=== PATIENT | female | born 1985 | race Caucasian/White ===

== ENCOUNTER → 2019-07-28 | Outpatient (CLI) | payer SELFPAY ==
[~2019-07-28] MED LIST: ANTIVERT 25MG25 MG PO; BCP; CIPRO 500MG TA500 MG PO; DEPO-PROVE400 MG/VIA IM; DESYREL 50MG50 MG PO; HYDROCODONE/APAP PO; LEVOXYL0.025 MG PO; MACROBID 1100 MG/CAP PO; MOTRIN 800800 MG/TAB PO; NORCO 325 MG-7.1 TAB PO; PERCOCET 325 MG1 TA2 PO; PHENERGAN 25 TA25 MG PO; PRILOSEC 20MG20 MG PO; PRISTIQ 50 MG T50 MG PO; SYNTHROID0.075 MG/T PO; TAMIFLU 75MG75 MG PO; TUMS500 MG
[2019-07-28 09:22] LABS: CHOLESTEROL RISK RATIO 4.6
== END ==
LOC: COL.LAB 08:51
PROVIDERS: Registered Nurse
DX: Z13.228 Encounter for screening for other metabolic disorders (principal); E03.9 Hypothyroidism, unspecified

== ENCOUNTER → 2020-11-05 | Outpatient (CLI) | payer SELFPAY | LOC: ZCOL.LAB 10:00 | DX: Z20.822 Contact with and (suspected) exposure to COVID-19 (principal) ==

== ENCOUNTER 2022-05-31 13:15 | Emergency (ER) | payer SELFPAY ==
[~2022-05-31] VITALS: Ht 165.1 cm; Wt 90.9 kg
[2022-05-31 14:00] VITALS: TEMP 100.1
[2022-05-31 14:53] LABS: COLLECTION METHOD CLEAN CATCH
[2022-05-31 14:58] LABS: BASO % 0.8 % (0.0-2.0); GRAN # 2.9 K/mm3 (1.4-6.5); GRAN % 76.9 % (42.2-75.2); HEMOGLOBIN 13.9 g/dl (12.5-16.0); LYMPH # 0.6 K/mm3 (1.2-3.4); LYMPH % 16.3 % (20.0-51.0); MEAN CELL VOLUME 90 fl (80.0-100.0); MEAN CORPUSCULAR HEMOGLOBIN 31 pg (27-31); MEAN CORPUSCULAR HGB CONC 35 g/dl (33.0-37.0); MEAN PLATELET VOLUME 9.4 fl (7.4-10.4); MONO # 0.2 K/mm3 (0.1-0.6); MONO % 5.5 % (1.7-9.3); PLATELET COUNT 227 K/mm3 (130-400); RED BLOOD COUNT 4.45 M/mm3 (4.10-5.30); REDCELL DISTRIBUTION WIDTH-CV 11.9 % (11.5-14.5)
[2022-05-31 15:00] LABS: MUCOUS Present (NOT PRESENT); URINE BACTERIA Rare /hpf (NONE SEEN); URINE RBC 0-2 /hpf (0-2)
[2022-05-31 15:04] LABS: PH 5 (5-8); URINE APPEARANCE Clear (CLEAR/HAZY); URINE BLOOD 1+ (NEGATIVE); URINE COLOR Yellow (YELLOW); URINE GLUCOSE Negative (NEGATIVE); URINE KETONE Negative (NEGATIVE); URINE NITRATE Negative (NEGATIVE); URINE PROTEIN(semi-quant) 1+ (NEGATIVE); URINE UROBILINOGEN Negative (NEGATIVE)
[2022-05-31 15:14] LABS: ALBUMIN 4.1 gm/dL (3.5-5.0); BILIRUBIN,TOTAL 0.5 mg/dL (0.2-1.2); CALCIUM 8.8 mg/dL (8.4-10.2); CREATININE, serum 0.68 mg/dL (0.57-1.11); POTASSIUM 3.6 mmol/L (3.5-4.5); TOTAL PROTEIN 7.7 gm/dL (6.2-8.1)
[2022-05-31] MEDS ORDERED: PROTONIX20 MG PO (15:30)
[2022-05-31 15:32] VITALS: BP 138/82; PULSE 80
== END 2022-05-31 15:45 | disposition home or self-care (01) ==
LOC: COL.ER 13:15
PROVIDERS: Emergency Medicine
DX: R10.12 Left upper quadrant pain (principal); R10.13 Epigastric pain; M54.6 Pain in thoracic spine; R31.9 Hematuria, unspecified; D72.819 Decreased white blood cell count, unspecified; Z98.890 Other specified postprocedural states; Z32.02 Encounter for pregnancy test, result negative; Z20.822 Contact with and (suspected) exposure to COVID-19
CPT/HCPCS: J1885; J7030; Q9967